=== PATIENT | male | born 1970 | race Caucasian/White ===

== ENCOUNTER 2018-07-30 04:31 | Emergency (ER) | payer OTHER ==
[2018-07-30 05:51] LABS: ANION GAP 11 (5-19); BLOOD UREA NITROGEN 6 mg/dL (7-20); CALCIUM 9.3 mg/dL (8.4-10.2); CARBON DIOXIDE 25 mmol/L (22-30); CHLORIDE 107 mmol/L (98-107); GLUCOSE 105 mg/dL (75-110); POTASSIUM 4.1 mmol/L (3.6-5.0); SODIUM 142.7 mmol/L (137-145)
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
[2018-07-30 07:37] VITALS: BP 104/75
== END 2018-07-30 08:10 | disposition home or self-care (01) ==
LOC: ER 04:31
DX: T58.91XA Toxic effect of carbon monoxide from unspecified source, accidental (unintentional), initial encounter (principal); R51 Headache; R53.1 Weakness; Z85.118 Personal history of other malignant neoplasm of bronchus and lung; F17.210 Nicotine dependence, cigarettes, uncomplicated
CPT/HCPCS: 36415; 80048; 82375; 99284